=== PATIENT | female | born 1995 | race Caucasian/White ===

== ENCOUNTER → 2017-08-20 | Outpatient (REF) | payer OTHER ==
[~2017-08-20] MED LIST: DOXY20PT PO; ONDA4TAB9 PO; ORAL CONTRACEPTIVE; PER PO
== END ==
LOC: ZZSENDIN 13:35
PROVIDERS: ATTEND Family Medicine
DX: L70.0 Acne vulgaris (principal)
CPT/HCPCS: 82040; 82247; 82248; 84075; 84155; 84450; 84460